=== PATIENT | female | born 1975 | race American Indian/Alaskan Native ===

== ENCOUNTER 2019-07-18 18:23 | Emergency (ER) | payer OTHER ==
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
== END 2019-07-18 19:51 | disposition left against medical advice (07) ==
LOC: ED 18:23
DX: R56.9 Unspecified convulsions (principal); I10 Essential (primary) hypertension
CPT/HCPCS: 99283